=== PATIENT | male | born 1980 | race Caucasian/White ===

== ENCOUNTER 2016-12-05 08:58 | Emergency (ER) | payer BC ==
[~2016-12-05] VITALS: Ht 170.1 cm; Wt 79.4 kg
[~2016-12-05 08:58] MED LIST: AMOXICILLIN500 MG PO; ATIVAN0.5 MG PO; CHLORHEXIDINE480 ML PO; FLEXERIL10 MG PO; FLUOXETINE HYDR20 M1 PO; HYDROCODONE BIT1 T11 PO; IBU800 MG PO; MOTRIN800 MG PO; NORFLEX100 MG PO; PERCOCET 325 MG1 TA2 PO; TRAMADOL50 MG PO; ULTRAM50 MG PO
[2016-12-05] MEDS ORDERED: VISTARIL25 MG PO (10:51)
== END 2016-12-05 11:11 | disposition home or self-care (01) ==
LOC: ED 08:58
DX: F41.9 Anxiety disorder, unspecified (principal); F17.200 Nicotine dependence, unspecified, uncomplicated; Z79.899 Other long term (current) drug therapy

== ENCOUNTER 2017-10-17 09:07 | Emergency (ER) | payer BC ==
[~2017-10-17] VITALS: Ht 170.1 cm; Wt 79.8 kg
[~2017-10-17 09:07] MED LIST changes: +CEPHALEXIN500 M1 PO; +VISTARIL25 MG PO
== END 2017-10-17 09:46 | disposition home or self-care (01) ==
LOC: ED 09:07
DX: S91.114D Laceration without foreign body of right lesser toe(s) without damage to nail, subsequent encounter (principal); Z48.00 Encounter for change or removal of nonsurgical wound dressing; W22.8XXD Striking against or struck by other objects, subsequent encounter

== ENCOUNTER 2021-11-07 14:08 | Emergency (ER) | payer BC ==
[~2021-11-07] VITALS: Wt 80.7 kg
== END 2021-11-07 15:24 | disposition home or self-care (01) ==
LOC: ED 14:08
DX: S93.401A Sprain of unspecified ligament of right ankle, initial encounter (principal); W17.89XA Other fall from one level to another, initial encounter; Y93.89 Activity, other specified; Y92.89 Other specified places as the place of occurrence of the external cause; Y99.8 Other external cause status

== ENCOUNTER 2024-03-10 08:36 | Emergency (ER) | payer BC ==
[~2024-03-10] VITALS: Wt 77.1 kg
[2024-03-10] MEDS ORDERED: Ketorolac Tromethamine 30 MG/ML VIAL IM ONE (11:15)
[2024-03-10] MEDS ORDERED: METHOCARBAMOL1000 MG PO (11:20)
[2024-03-10] MEDS ORDERED: NEURONTIN100 MG PO (11:22)
== END 2024-03-10 11:20 | disposition home or self-care (01) ==
LOC: ED 08:36
DX: M54.12 Radiculopathy, cervical region (principal); M79.602 Pain in left arm